=== PATIENT | male | born 1975 | race African-American/Black ===

== ENCOUNTER 2017-01-27 23:15 | Emergency (ER) | payer OTHER ==
[2017-01-27 23:27] VITALS: BP 136/84; BMI 31.2
[2017-01-28] MEDS ORDERED: NORFLEX INJ IM ONE (01:40)
[2017-01-28] MEDS ORDERED: TORADOL 60 MG VIAL IM ONE (01:40)
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
[2017-01-28] MEDS ORDERED: NORFLEX INJ ONE ×2 (01:57→01:58)
[2017-01-28] MEDS ORDERED: TORADOL 60 MG VIAL ONE (01:57)
== END 2017-01-28 02:39 | disposition home or self-care (01) ==
LOC: ER 23:15
DX: S39.012A Strain of muscle, fascia and tendon of lower back, initial encounter (principal); Y33.XXXA Other specified events, undetermined intent, initial encounter; Y92.89 Other specified places as the place of occurrence of the external cause
CPT/HCPCS: 96372; 99282; J1885; J2360

== ENCOUNTER 2017-12-31 08:29 | Emergency (ER) | payer OTHER ==
[2017-12-31 08:32] VITALS: BP 121/74; BMI 29.9
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
[2017-12-31] MEDS ORDERED: TORADOL 60 MG VIAL IM ONE (08:56)
[2017-12-31] MEDS ORDERED: TORADOL 60 MG VIAL ONE (08:57)
== END 2017-12-31 09:12 | disposition home or self-care (01) ==
LOC: ER 08:37
DX: M62.830 Muscle spasm of back (principal)
CPT/HCPCS: 96372; 99282; J1885

== ENCOUNTER → 2018-02-10 | Outpatient (CLI) | payer OTHER ==
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
== END | disposition home or self-care (01) | DRG 552 ==
LOC: RAD 13:22
PROVIDERS: ATTEND Nurse Practitioner Family
DX: M54.41 Lumbago with sciatica, right side (principal); M51.37 Other intervertebral disc degeneration, lumbosacral region
CPT/HCPCS: 72100

== ENCOUNTER 2018-02-20 05:26 | Emergency (ER) | payer OTHER ==
[2018-02-20 05:31] VITALS: BP 118/72; BMI 28.9
[2018-02-20] MEDS ORDERED: TORADOL 60 MG VIAL IM ONE (05:35)
[2018-02-20] MEDS ORDERED: NORFLEX INJ IM ONE (05:35)
[2018-02-20] MEDS ORDERED: NORFLEX INJ ONE (05:37)
[2018-02-20] MEDS ORDERED: TORADOL 60 MG VIAL ONE (05:37)
--- NOTE | 2018-02-20 05:37 | DR.EXTPAIN ---
HPI - Time seen Time seen: 05:25 - PCP Primary Care Physician: JOSELUIS DAI - HPI Comment HPI Comment: SUDDEN ONSET THIS AM WHILE GETTING READY FOR WORK. PREVIOUS EPISODES BUT TODAY IS THE WORSE. - Complaint/Symptoms Chief Complaint Doctor Comments: LOWER BACK PAIN. Chief Complaint:: BACK PAIN, O/S WHILE GETTING READY FOR WORK. PATIENT STATES, "I SEEN JOSELUIS WITH AT THE CLINIC AND HAD SOME XRAYS DONE HERE. THEY SAID I NEED CARTILAGE IN MY BACK, WHATEVER THAT MEANS. I FEEL LIKE MY BACK IS GOING TO BREAK." - Nurses notes reviewed Nurses Notes Review: Yes - Source History Provided: Patient - Mode of arrival Mode of Arrival: Ambulatory - Timing Onset of Chief Complaint: 02/20/18 - Context History of: Arthritis - Associated signs and symptoms Associated Signs and Symptoms: Pain PMH - PMH Past Medical History: Yes Past Medical History: Asthma, COPD Past Surgical History: No - Family History History of Family Medical Conditions: Yes Family Medical History: [place], Coronary Artery Disease, Heart Failure - Social History Type of Tobacco Use: Cigarettes Alcohol Use: None Do you use any recreational Drugs:: No Lives With: Alone Lives Where: Home - infectious screening Have you traveled outside the country in the last 6 months?: No Isolation: Standard ROS - Review of Systems Constitutional: No Symptoms Reported Eyes: No Symptoms Reported ENTM: No Symptoms Reported Respiratoy: No Symptoms Reported Cardiovascular: No Symptoms Reported Gastrointestinal/Abdominal: No Symptoms Reported Genitourinary: No Symptoms Reported Neurological: No Symptoms Reported Musculoskeletal: Back Pain, Muscle Pain, Back Integumentary: No Symptoms Reported Hematologic/Lymphatic: No Symptoms Reported Endocrine: No Symptoms Reported All Other Systems: Reviewed and Negative PE - Vital Signs Vitals: Temperature 98.8 F Pulse Rate 81 Respiratory Rate 22 Blood Pressure 118/72 O2 Sat by Pulse Oximetry 97 - General Limitations: No Limitations General Appearance: Alert - Head Head Exam: Normal Inspection - Eyes Eye exam: Normal Appearance - ENT ENT Exam: Normal External Ear Exam - Neck Neck Exam: Trachea Midline - Chest Chest Inspection: Symmetric Chest Wall Rise - Respiratory Respiratory Exam: Normal Lung Sounds Bilat Respiratory Exam: Bilateral Clear to Auscultation - Cardiovascular Cardiovascular Exam: Regular Rate, Normal Rhythm, Normal Heart Sounds - Abdominal Exam Abdominal Exam: Normal Bowel Sounds, Soft. negative: Tenderness - Extremities Extremities Exam: Normal Inspection - Back Back Exam: Tenderness (LUMBAR SPINE), Paraspinal Tenderness (LOWER BACK) - Neurological Neurological Exam: Alert, Oriented X3 - Psychiatric Psychiatric Exam: Normal Affect, Normal Mood - Skin Skin Exam: Normal Color MDM - Differential Diagnosis Differential Diagnosis: Sprain Course - Treatment Treatment: SEE ORDERS. - Education/Counseling Education/Counseling: Patient, Education Educated On: Treatment, Diagnosis, Needs for Follow Up ROR - XRAY XRAY Interpreted by: Radiologist XRAY Findings: REPORT DISCUSS WITH PATIENT. - Diagnosis Discharge Problem: Lumbosacral strain, Back muscle spasm - Discharge Plan Condition: Stable - Follow ups/Referrals Follow ups/Referrals: Joseluis Dai [Primary Care Provider] - 3 days - Instructions Instructions: Muscle Cramps and Spasms, [id number], Lumbosacral Strain Additional Instructions: RETURN TO ED IF WORSE.
--- NOTE | 2018-02-20 06:52 | CT ---
HISTORY: Low back pain Study: CT lumbar spine without contrast Comparison: None Technique: Axial noncontrast images with coronal and sagittal reformats. Dose reduction procedures we re used with mA/kv adjusted for body size. Findings: The alignment is normal. The vertebral bodies are of average height. No compression fractures are mena ntified. The pedicles, spinous processes, and posterior elements are intact. The sacrum and SI joints are intact. The disc levels are evaluated as follows: L1-2 level: No evidence for compressive disc disease. The neural foramina are patent. Bilateral facet arthropathy is present. L2-3 level. No evidence for compressive disc disease. However, pedicular shortening and facet arthrop athy contribute to mild lateral recess narrowing bilaterally. L3-4 level: There is no evidence for compressive disc disease. However pedicular shortening and facet arthropathy contribute to lateral recess narrowing bilaterally. L4-5 level: Mild concentric disc bulging contributes along with pedicular shortening and bilateral fa cet arthropathy to moderate lateral recess and foraminal narrowing bilaterally. L5-S1 level: There is severe degenerative disc disease with vacuum phenomenon present. Broad-based di sc bulging and spondylitic change contribute along with bilateral facet arthropathy to significant la teral recess and foraminal narrowing more prominent on the left than right and more prominent by late rally than at the levels above. IMPRESSION: As above Reported By:
== END 2018-02-20 07:15 | disposition home or self-care (01) ==
LOC: ER 05:26
DX: M54.5 Low back pain (principal); M62.830 Muscle spasm of back
CPT/HCPCS: 72131; 96372; 99282; J1885; J2360